=== PATIENT | male | born 1970 | race African-American/Black ===

== ENCOUNTER 2019-03-17 02:24 | Emergency (ER) | payer BC, OTHER ==
[~2019-03-17] VITALS: Ht 188 cm; Wt 121.1 kg
[~2019-03-17 02:24] MED LIST: CLEOCIN HCL150 MG PO; IBUPROFEN 600600 M1 PO; NORCO 5-325 TA1 EACH PO; POLYMYXIN B/TMP10 ML OP; VENTOLIN HFA 1818 GM INH
[2019-03-17] MEDS ORDERED: PREDNISONE 20 M20 MG PO (02:45)
[2019-03-17] MEDS ORDERED: VENTOLIN HFA 1818 GM INH (02:45)
[2019-03-17 03:28] VITALS: BP 117/70
== END 2019-03-17 03:29 | disposition home or self-care (01) ==
LOC: ER 02:24
DX: J45.901 Unspecified asthma with (acute) exacerbation (principal); J30.9 Allergic rhinitis, unspecified; F17.210 Nicotine dependence, cigarettes, uncomplicated